=== PATIENT | male | born 1960 | race Caucasian/White ===

== ENCOUNTER → 2016-09-20 | Outpatient (CLI) | payer BC, OTHER ==
[2016-09-20 12:27] LABS: INR 0.9
[2016-09-20 12:59] LABS: ALBUMIN/GLOBULIN RATIO 1.25 (1.00-1.93); ALKALINE PHOSPHATASE 99 U/L (45-117); ALT/SGPT 66 U/L (12-78); AST/SGOT 26 U/L (15-37); BILIRUBIN,DIRECT 0.2 MG/DL (0.0-0.2); BILIRUBIN,TOTAL 0.4 MG/DL (0.2-1.0); PERCENT SATURATION 22.6 % (19.7-37.4); TOTAL IRON BINDING CAPACITY 416 UG/DL (250-450); TOTAL PROTEIN 7.2 GM/DL (6.4-8.2)
== END ==
LOC: M LAB 11:15
PROVIDERS: ATTEND Internal Medicine Gastroenterology
DX: R93.3 Abnormal findings on diagnostic imaging of other parts of digestive tract (principal)

== ENCOUNTER → 2016-10-02 | Outpatient (CLI) | payer BC, OTHER ==
[~2016-10-02] VITALS: Ht 172.7 cm; Wt 112.0 kg
[~2016-10-02] MED LIST: ALBUTEROL SULFATE 2.5 MG/0.5 ML INH NEB SOLN As Ordered ONE; ASPI81TA7 PO; FLUTISP; FURO20TA2 PO; IPRA2IN INH; LIDOCAINE 2% INJ 100 MG/5 ML SDV (FOR ANES.) As Ordered ONE; NS 1,000 ML IV SCH; OMEP40CA2 PO; PROA1AER INH; PROPOFOL 200 MG/20 ML VIAL As Ordered ONE; SPIR50TA2 PO; [UNRECOGNIZED DRUG - OTHER] INH
--- NOTE | 2016-10-02 10:20 | ROOR ---
Patient Name: Roderick Michael Procedure Date: 10/02/2016 10:08 AM Date of : 1960 Age: 56 Room: [facility] Gender: Male Note Status: Finalized Procedure: Upper GI endoscopy Indications: Heartburn Providers: Shaun DENNIS MD Referring MD: Renée Das MD Requesting Provider: Medicines: Monitored Anesthesia Care Complications: No immediate complications. Procedure: Pre-Anesthesia Assessment: - The heart rate, respiratory rate, oxygen saturations, blood pressure, adequacy of pulmonary ventilation, and response to care were monitored throughout the procedure. The Endoscope was introduced through the mouth, and advanced to the second part of duodenum. The upper GI endoscopy was accomplished without difficulty. The patient tolerated the procedure well. Findings: The esophagus was normal. The stomach was normal. The examined duodenum was normal. Impression: - Normal esophagus. - Normal stomach. - Normal examined duodenum. - No specimens collected. Recommendation: - Observe patient's clinical course. - Follow an antireflux regimen. - Continue present medications. Shaun Dennis MD Shaun DENNIS MD 10/02/2016 10:19:32 AM This report has been signed electronically. Number of Addenda: 0 Note Initiated On: 10/02/2016 10:08 AM Estimated Blood Loss: Estimated blood loss: none.
[2016-10-02 10:58] VITALS: BP 134/96
== END ==
LOC: M OPP 08:20
PROVIDERS: ATTEND Internal Medicine Gastroenterology
DX: R12 Heartburn (principal); K21.9 Gastro-esophageal reflux disease without esophagitis; J44.9 Chronic obstructive pulmonary disease, unspecified; G47.30 Sleep apnea, unspecified

== ENCOUNTER → 2017-05-15 | Outpatient (CLI) | payer BC, OTHER ==
[~2017-05-15] MED LIST changes: -ALBUTEROL SULFATE 2.5 MG/0.5 ML INH NEB SOLN As Ordered ONE; +ASPI1TAB15 PO; -ASPI81TA7 PO; -LIDOCAINE 2% INJ 100 MG/5 ML SDV (FOR ANES.) As Ordered ONE; -NS 1,000 ML IV SCH; -PROA1AER INH; +PROAAER10 INH; -PROPOFOL 200 MG/20 ML VIAL As Ordered ONE
--- NOTE | 2017-05-17 15:34 | SLEEPHOME ---
DATE OF PROCEDURE: 05/15/2017 REFERRING PROVIDER: Dr. Das INTERPRETATION: Diagnostic home sleep testing was performed due to concern for the obstructive sleep apnea syndrome. For testing, a NOX-T3 respiratory monitoring device was used. Continuous record was made of pulse, oxygen saturation, air flow, chest and abdominal strain, and body position. 9 hours and 59 minutes of data were reviewed. There were 3 hours and 31 minutes marked as time in bed. During the interval marked time in bed, there were 181 respiratory events identified of 10 seconds in duration or greater for a respiratory event index of 51.3. The events were primarily obstructive. Baseline pulse rate was 104. Pulse rate ranged 52 to 124. Baseline saturation was 79%. Oxygen desaturations were seen to 61% surrounding respiratory events. Respiratory events were seen in both the supine and nonsupine position. IMPRESSION: Abnormal home sleep testing with repetitive respiratory events and oxygen desaturations to 61% with a respiratory event index of 51.3 is consistent with severe obstructive sleep apnea syndrome. In light of the significant oxygen desaturations, referral for formal sleep testing and in laboratory pressure titration is recommended. Home testing devices do not accommodate for oxygen saturation and would be contraindicated in this instance.
== END ==
LOC: M SLEEP HO 08:54
PROVIDERS: ATTEND Family Medicine
DX: J44.9 Chronic obstructive pulmonary disease, unspecified (principal)

== ENCOUNTER 2017-10-25 11:08 | Inpatient (IN) | payer BC, OTHER ==
[2017-10-25 12:09] LABS: VENOUS BASE EXCESS 5.2 (-2.0-2.0); VENOUS HCO3 35.7 MEQ/L (23.0-27.0); VENOUS O2 SATURATION 86.5 % (60.0-80.0); VENOUS PARTIAL PRESSURE CO2 76.6 mmHg (38.0-50.0); VENOUS PARTIAL PRESSURE O2 49.9 mmHg (30.0-50.0); VENOUS PH 7.286 UNITS (7.330-7.430); VENOUS STANDARD HCO3 28.8 MEQ/L
[2017-10-25 12:15] LABS: BASO # 0.1 10^3/uL (0.0-0.2); BASO % 0.8 % (0.0-1.0); EOS # 0.2 10^3/uL (0.0-0.50); HEMATOCRIT 54.3 % (42.0-52.0); HEMOGLOBIN 17.4 g/dl (14.0-18.0); IMMATURE GRANULOCYTE % 0.3 % (0-3.0); LYMPH # 1.6 10^3/uL (1.5-4.5); LYMPH % 18.2 % (24.0-44.0); MEAN CORPUSCULAR HEMOGLOBIN 30.2 pg (27.0-33.0); MEAN CORPUSCULAR VOLUME 94.3 fl (80.0-96.0); MONO # 1.1 10^3/uL (0.0-0.8); MONO % 12.5 % (0.0-5.0); NEUTROPHILS # 5.7 10^3/uL (1.8-7.7); NEUTROPHILS % 66.2 % (36.0-66.0); PLATELET COUNT, AUTOMATED 220 10^3/uL (150-450); RED BLOOD COUNT 5.76 10^6/uL (4.30-6.10); RED CELL DISTRIBUTION WIDTH 14.7 % (11.5-14.5); WHITE BLOOD COUNT 8.6 10^3/uL (4.0-10.0)
[2017-10-25 12:16] LABS: SUSPECT SAMPLE POS FLAG
[2017-10-25 12:26] LABS: INR 0.92; PROTHROMBIN TIME 12.4 SECONDS (12.4-14.5)
[2017-10-25 12:39] LABS: ANION GAP 6 MEQ/L (8-16); BLOOD UREA NITROGEN 19 MG/DL (7-18); CALCIUM LEVEL 8.9 MG/DL (8.5-10.1); CARBON DIOXIDE LEVEL 34 MEQ/L (21-32); CHLORIDE LEVEL 102 MEQ/L (98-107); CK-MB VALUE MASS 1.9 NG/ML (0.0-3.6); CPK CREATINE PHOSPHOKINASE 98 U/L (39-308); CREATININE FOR GFR 0.94 MG/DL (0.70-1.30); GLOMERULAR FILTRATION RATE > 60.0 (>56); GLUCOSE, FASTING 84 MG/DL (70-100); MB/CK RELATIVE INDEX 1.93 (< OR =4); SODIUM LEVEL 142 MEQ/L (136-145); TROPONIN I < 0.02 NG/ML (< 0.10)
[2017-10-25 12:39] LABS: LACTIC ACID SEPSIS PROTOCOL 2.8 MMOL/L (0.4-2.0)
[2017-10-25 12:43] LABS: ALBUMIN 3.6 GM/DL (3.2-5.2); ALBUMIN/GLOBULIN RATIO 1.13 (1.00-1.93); ALKALINE PHOSPHATASE 93 U/L (45-117); ALT/SGPT 60 U/L (12-78); AST/SGOT 36 U/L (7-37); BILIRUBIN,DIRECT 0.1 MG/DL (0.0-0.2); BILIRUBIN,TOTAL 0.4 MG/DL (0.2-1.0); NT-PRO BNP 20 PG/ML (<125); TOTAL PROTEIN 6.8 GM/DL (6.4-8.2)
[2017-10-25] MEDS ORDERED: ISOVUE-370 76% 100ML VIAL (Q9967) As Ordered ×2 (14:15)
[2017-10-25] MEDS: methylPREDNISolone INJ 125 MG/2 ML VIAL (J2930) IV ×4 (15:06→22:26)
[2017-10-25] MEDS: IPRATROPIUM 0.5MG/ALBUTEROL 2.5MG INH SOL UD 3ML (DUONEB)(J7620) NEB ×4 (15:22→19:30)
[2017-10-25 18:13] LABS: ABG BASE EXCESS 2.9 (-2.0-2.0); ABG HCO3 29.6 MEQ/L (22.0-26.0); ABG O2 SATURATION 90.8 % (95.0-99.0); ABG PARTIAL PRESSURE CO2 52.1 mmHg (35.0-45.0); ABG PARTIAL PRESSURE O2 59.5 mmHg (75.0-100.0); ABG STANDARD HCO3 26.8 MEQ/L (22.0-26.0); ABG TOTAL CO2 31.2 MEQ/L (22.0-29.0); ABG pH (ARTERIAL) 7.373 UNITS (7.350-7.450)
[2017-10-25] MEDS: AZITHROMYCIN INJ 500 MG, VIAL MATE ADAPTER 1 EACH in D5W 250 ML IV ×2 (18:28)
[2017-10-25] MEDS: CEFTRIAXONE SOD 1 GM in APPROPRIATE DILUENT 1 EA IV (19:49)
[2017-10-25] MEDS: GABAPENTIN 300 MG CAP PO ×2 (21:14)
[2017-10-26] MEDS: IPRATROPIUM 0.5MG/ALBUTEROL 2.5MG INH SOL UD 3ML (DUONEB)(J7620) NEB ×14 (00:13→23:57)
[2017-10-26 06:35] LABS: HEMATOCRIT 56.5 % (42.0-52.0); HEMOGLOBIN 17.8 g/dl (14.0-18.0); MEAN CORPUSCULAR HEMOGLOBIN 29.5 pg (27.0-33.0); MEAN CORPUSCULAR HGB CONC 31.5 g/dl (32.0-36.5); MEAN CORPUSCULAR VOLUME 93.5 fl (80.0-96.0); PLATELET COUNT, AUTOMATED 220 10^3/uL (150-450); RED BLOOD COUNT 6.04 10^6/uL (4.30-6.10); WHITE BLOOD COUNT 8.5 10^3/uL (4.0-10.0)
[2017-10-26] MEDS: NS 500 ML IV ×2 (06:39)
[2017-10-26] MEDS: methylPREDNISolone INJ 125 MG/2 ML VIAL (J2930) IV ×6 (06:40→23:36)
[2017-10-26] MEDS: ACETAMINOPHEN TAB 650MG DOSE (2X325MG) PO ×2 (06:40)
[2017-10-26 08:13] LABS: ALBUMIN 3.3 GM/DL (3.2-5.2); ALBUMIN/GLOBULIN RATIO 0.97 (1.00-1.93); ALKALINE PHOSPHATASE 91 U/L (45-117); ALT/SGPT 54 U/L (12-78); ANION GAP 5 MEQ/L (8-16); AST/SGOT 22 U/L (7-37); BILIRUBIN,TOTAL 0.2 MG/DL (0.2-1.0); BLOOD UREA NITROGEN 23 MG/DL (7-18); CALCIUM LEVEL 8.1 MG/DL (8.5-10.1); CARBON DIOXIDE LEVEL 35 MEQ/L (21-32); CHLORIDE LEVEL 105 MEQ/L (98-107); CREATININE FOR GFR 1.11 MG/DL (0.70-1.30); GLOMERULAR FILTRATION RATE > 60.0 (>56); GLUCOSE, FASTING 227 MG/DL (70-100); MAGNESIUM LEVEL 2.7 MG/DL (1.8-2.4); POTASSIUM SERUM 4.4 MEQ/L (3.5-5.1); SODIUM LEVEL 145 MEQ/L (136-145); TOTAL PROTEIN 6.7 GM/DL (6.4-8.2)
[2017-10-26] MEDS: FLUTICASONE PROP 0.05% NASAL SPRAY 16 GM (FLONASE) ×2 (08:37)
[2017-10-26] MEDS: hydroCHLOROthiazide 12.5 MG CAPSULE PO ×2 (08:37)
[2017-10-26] MEDS: GABAPENTIN 300 MG CAP PO ×4 (08:37→20:03)
[2017-10-26] MEDS: OMEPRAZOLE 20 MG CAP PO ×2 (08:37)
[2017-10-26] MEDS: ENOXAPARIN 40 MG/0.4 ML SYRINGE (J1650) SC ×2 (08:37)
[2017-10-26] MEDS: VALSARTAN 80 MG TAB (DIOVAN) PO ×2 (08:38)
[2017-10-26] MEDS: FUROSEMIDE 20 MG TAB PO ×2 (08:38)
[2017-10-26] MEDS: CEFTRIAXONE SOD 1 GM in APPROPRIATE DILUENT 1 EA IV ×2 (08:38→20:03)
[2017-10-26] MEDS: AZITHROMYCIN INJ 500 MG, VIAL MATE ADAPTER 1 EACH in D5W 250 ML IV ×2 (17:23)
[2017-10-27] MEDS: IPRATROPIUM 0.5MG/ALBUTEROL 2.5MG INH SOL UD 3ML (DUONEB)(J7620) NEB ×12 (03:10→23:21)
[2017-10-27 04:41] LABS: HEMATOCRIT 54.9 % (42.0-52.0); HEMOGLOBIN 16.8 g/dl (14.0-18.0); MEAN CORPUSCULAR HEMOGLOBIN 29.3 pg (27.0-33.0); MEAN CORPUSCULAR HGB CONC 30.6 g/dl (32.0-36.5); MEAN CORPUSCULAR VOLUME 95.6 fl (80.0-96.0); PLATELET COUNT, AUTOMATED 214 10^3/uL (150-450); RED BLOOD COUNT 5.74 10^6/uL (4.30-6.10); RED CELL DISTRIBUTION WIDTH 15.4 % (11.5-14.5); WHITE BLOOD COUNT 14.2 10^3/uL (4.0-10.0)
[2017-10-27 05:06] LABS: ALBUMIN 3.4 GM/DL (3.2-5.2); ALBUMIN/GLOBULIN RATIO 0.85 (1.00-1.93); ALKALINE PHOSPHATASE 82 U/L (45-117); ALT/SGPT 52 U/L (12-78); ANION GAP 4 MEQ/L (8-16); AST/SGOT 28 U/L (7-37); BILIRUBIN,TOTAL 0.3 MG/DL (0.2-1.0); BLOOD UREA NITROGEN 26 MG/DL (7-18); CALCIUM LEVEL 8.5 MG/DL (8.5-10.1); CARBON DIOXIDE LEVEL 34 MEQ/L (21-32); CHLORIDE LEVEL 105 MEQ/L (98-107); CREATININE FOR GFR 1.06 MG/DL (0.70-1.30); GLOMERULAR FILTRATION RATE > 60.0 (>56); GLUCOSE, FASTING 178 MG/DL (70-100); MAGNESIUM LEVEL 2.7 MG/DL (1.8-2.4); POTASSIUM SERUM 4.5 MEQ/L (3.5-5.1); SODIUM LEVEL 143 MEQ/L (136-145); TOTAL PROTEIN 7.4 GM/DL (6.4-8.2)
[2017-10-27] MEDS: ACETAMINOPHEN TAB 650MG DOSE (2X325MG) PO ×4 (05:54→19:59)
[2017-10-27] MEDS: methylPREDNISolone INJ 125 MG/2 ML VIAL (J2930) IV ×4 (06:13→14:36)
[2017-10-27] MEDS: BUDESONIDE 0.5 MG/2 ML INHALATION SUSPENSION INH ×4 (08:00→19:34)
[2017-10-27] MEDS: FORMOTEROL FUMARATE 20 MCG/2 ML INHALATION SOLUTION (PERFOROMIST) INH ×4 (08:00→19:34)
[2017-10-27] MEDS: CEFTRIAXONE SOD 1 GM in APPROPRIATE DILUENT 1 EA IV ×2 (08:04→19:59)
[2017-10-27] MEDS: hydroCHLOROthiazide 12.5 MG CAPSULE PO ×2 (08:05)
[2017-10-27] MEDS: GABAPENTIN 300 MG CAP PO ×4 (08:05→20:00)
[2017-10-27] MEDS: FUROSEMIDE 20 MG TAB PO ×2 (08:05)
[2017-10-27] MEDS: OMEPRAZOLE 20 MG CAP PO ×2 (08:05)
[2017-10-27] MEDS: VALSARTAN 80 MG TAB (DIOVAN) PO ×2 (08:06)
[2017-10-27] MEDS: FLUTICASONE PROP 0.05% NASAL SPRAY 16 GM (FLONASE) ×2 (08:06)
[2017-10-27] MEDS: ENOXAPARIN 40 MG/0.4 ML SYRINGE (J1650) SC ×2 (08:06)
[2017-10-27 08:42] LABS: C REACTIVE PROTEIN QUANTITATIV 0.47 MG/DL (0.00-0.30)
[2017-10-27] MEDS: SPIRONOLACTONE 50 MG TAB PO ×2 (09:01)
[2017-10-27 09:38] LABS: ERYTHROCYTE SEDIMENTATION RATE 2 mm/hr (0-20)
[2017-10-27] MEDS ORDERED: MAGIC MOUTHWASH SUSPENSION BTL SSP ×2 (12:30)
[2017-10-27] MEDS: AZITHROMYCIN INJ 500 MG, VIAL MATE ADAPTER 1 EACH in D5W 250 ML IV ×2 (17:56)
[2017-10-27] MEDS: ONDANSETRON 4MG/2ML VIAL (J2405) IV ×2 (18:48)
[2017-10-28] MEDS: methylPREDNISolone INJ 125 MG/2 ML VIAL (J2930) IV ×8 (00:26→23:11)
[2017-10-28] MEDS: ACETAMINOPHEN TAB 650MG DOSE (2X325MG) PO ×2 (03:34)
[2017-10-28] MEDS: ONDANSETRON 4MG/2ML VIAL (J2405) IV ×4 (03:37→09:31)
[2017-10-28] MEDS: IPRATROPIUM 0.5MG/ALBUTEROL 2.5MG INH SOL UD 3ML (DUONEB)(J7620) NEB ×12 (04:00→23:10)
[2017-10-28] MEDS ORDERED: diphenhydrAMINE INJ 50MG/ML VIAL (J1200) As Ordered ×2 (04:55)
[2017-10-28] MEDS: diphenhydrAMINE INJ 50MG/ML VIAL (J1200) IV ×4 (05:05→23:12)
[2017-10-28 05:33] LABS: HEMATOCRIT 55.3 % (42.0-52.0); HEMOGLOBIN 17.2 g/dl (14.0-18.0); MEAN CORPUSCULAR HEMOGLOBIN 29.8 pg (27.0-33.0); MEAN CORPUSCULAR HGB CONC 31.1 g/dl (32.0-36.5); MEAN CORPUSCULAR VOLUME 95.7 fl (80.0-96.0); PLATELET COUNT, AUTOMATED 186 10^3/uL (150-450); RED BLOOD COUNT 5.78 10^6/uL (4.30-6.10); RED CELL DISTRIBUTION WIDTH 15.1 % (11.5-14.5); WHITE BLOOD COUNT 13.2 10^3/uL (4.0-10.0)
[2017-10-28 05:44] LABS: ALBUMIN 3.6 GM/DL (3.2-5.2); ALBUMIN/GLOBULIN RATIO 1.03 (1.00-1.93); ALKALINE PHOSPHATASE 78 U/L (45-117); ALT/SGPT 65 U/L (12-78); ANION GAP 7 MEQ/L (8-16); AST/SGOT 31 U/L (7-37); BILIRUBIN,TOTAL 0.3 MG/DL (0.2-1.0); BLOOD UREA NITROGEN 28 MG/DL (7-18); CALCIUM LEVEL 8.4 MG/DL (8.5-10.1); CARBON DIOXIDE LEVEL 36 MEQ/L (21-32); CHLORIDE LEVEL 101 MEQ/L (98-107); CREATININE FOR GFR 0.96 MG/DL (0.70-1.30); GLOMERULAR FILTRATION RATE > 60.0 (>56); GLUCOSE, FASTING 137 MG/DL (70-100); SODIUM LEVEL 144 MEQ/L (136-145); TOTAL PROTEIN 7.1 GM/DL (6.4-8.2)
[2017-10-28] MEDS ORDERED: methylPREDNISolone INJ 125 MG/2 ML VIAL (J2930) As Ordered ×2 (06:15)
[2017-10-28] MEDS: BUDESONIDE 0.5 MG/2 ML INHALATION SUSPENSION INH ×4 (07:51→19:45)
[2017-10-28] MEDS: FORMOTEROL FUMARATE 20 MCG/2 ML INHALATION SOLUTION (PERFOROMIST) INH ×4 (07:51→19:45)
[2017-10-28] MEDS: SPIRONOLACTONE 50 MG TAB PO ×2 (08:46)
[2017-10-28] MEDS: CEFTRIAXONE SOD 1 GM in APPROPRIATE DILUENT 1 EA IV ×2 (08:46→20:09)
[2017-10-28] MEDS: ENOXAPARIN 40 MG/0.4 ML SYRINGE (J1650) SC ×2 (08:46)
[2017-10-28] MEDS: hydroCHLOROthiazide 12.5 MG CAPSULE PO ×2 (08:47)
[2017-10-28] MEDS: FUROSEMIDE 20 MG TAB PO ×2 (08:47)
[2017-10-28] MEDS: GABAPENTIN 300 MG CAP PO ×4 (08:47→20:09)
[2017-10-28] MEDS: VALSARTAN 80 MG TAB (DIOVAN) PO ×2 (08:47)
[2017-10-28] MEDS: OMEPRAZOLE 20 MG CAP PO ×2 (08:47)
[2017-10-28] MEDS: FLUTICASONE PROP 0.05% NASAL SPRAY 16 GM (FLONASE) ×2 (08:48)
[2017-10-28] MEDS: EXCEDRIN MIGRAINE TABLET PO ×4 (09:31→20:35)
[2017-10-28] MEDS: DOCUSATE SODIUM 100 MG CAP PO ×4 (12:51→20:09)
[2017-10-28] MEDS: MIRALAX *UNIT DOSE* 17GM PACKET PO ×2 (12:51)
[2017-10-28] MEDS: FUROSEMIDE 40 MG/4 ML VIAL (J1940) IV ×2 (15:35)
[2017-10-28] MEDS: AZITHROMYCIN INJ 500 MG, VIAL MATE ADAPTER 1 EACH in D5W 250 ML IV ×2 (17:49)
[2017-10-29] MEDS: IPRATROPIUM 0.5MG/ALBUTEROL 2.5MG INH SOL UD 3ML (DUONEB)(J7620) NEB ×14 (02:12→23:58)
[2017-10-29] MEDS: ONDANSETRON 4MG/2ML VIAL (J2405) IV ×2 (02:22)
[2017-10-29 04:35] LABS: HEMATOCRIT 57.2 % (42.0-52.0); HEMOGLOBIN 17.6 g/dl (14.0-18.0); MEAN CORPUSCULAR HEMOGLOBIN 29.6 pg (27.0-33.0); MEAN CORPUSCULAR HGB CONC 30.8 g/dl (32.0-36.5); MEAN CORPUSCULAR VOLUME 96.1 fl (80.0-96.0); PLATELET COUNT, AUTOMATED 180 10^3/uL (150-450); RED BLOOD COUNT 5.95 10^6/uL (4.30-6.10); RED CELL DISTRIBUTION WIDTH 14.8 % (11.5-14.5); WHITE BLOOD COUNT 11.5 10^3/uL (4.0-10.0)
[2017-10-29 04:49] LABS: ALBUMIN 3.3 GM/DL (3.2-5.2); ALBUMIN/GLOBULIN RATIO 0.87 (1.00-1.93); ALKALINE PHOSPHATASE 75 U/L (45-117); ALT/SGPT 99 U/L (12-78); ANION GAP 1 MEQ/L (8-16); AST/SGOT 47 U/L (7-37); BILIRUBIN,TOTAL 0.2 MG/DL (0.2-1.0); BLOOD UREA NITROGEN 36 MG/DL (7-18); CALCIUM LEVEL 8.1 MG/DL (8.5-10.1); CARBON DIOXIDE LEVEL 41 MEQ/L (21-32); CHLORIDE LEVEL 98 MEQ/L (98-107); GLOMERULAR FILTRATION RATE > 60.0 (>56); GLUCOSE, FASTING 138 MG/DL (70-100); POTASSIUM SERUM 4.9 MEQ/L (3.5-5.1); SODIUM LEVEL 140 MEQ/L (136-145); TOTAL PROTEIN 7.1 GM/DL (6.4-8.2)
[2017-10-29] MEDS: methylPREDNISolone INJ 125 MG/2 ML VIAL (J2930) IV ×2 (06:22)
[2017-10-29] MEDS: FORMOTEROL FUMARATE 20 MCG/2 ML INHALATION SOLUTION (PERFOROMIST) INH ×4 (07:40→19:45)
[2017-10-29] MEDS: BUDESONIDE 0.5 MG/2 ML INHALATION SUSPENSION INH ×4 (07:40→19:45)
[2017-10-29] MEDS: CEFTRIAXONE SOD 1 GM in APPROPRIATE DILUENT 1 EA IV (08:29)
[2017-10-29] MEDS: SPIRONOLACTONE 50 MG TAB PO ×2 (08:30)
[2017-10-29] MEDS: ENOXAPARIN 40 MG/0.4 ML SYRINGE (J1650) SC ×2 (08:30)
[2017-10-29] MEDS: GABAPENTIN 300 MG CAP PO ×4 (08:30→20:19)
[2017-10-29] MEDS: hydroCHLOROthiazide 12.5 MG CAPSULE PO ×2 (08:30)
[2017-10-29] MEDS: DOCUSATE SODIUM 100 MG CAP PO ×4 (08:30→20:19)
[2017-10-29] MEDS: OMEPRAZOLE 20 MG CAP PO ×2 (08:30)
[2017-10-29] MEDS: FLUTICASONE PROP 0.05% NASAL SPRAY 16 GM (FLONASE) ×2 (08:31)
[2017-10-29] MEDS: VALSARTAN 80 MG TAB (DIOVAN) PO ×2 (08:39)
[2017-10-29] MEDS: NADOLOL 20MG TABLET PO ×2 (10:26)
[2017-10-29] MEDS: EXCEDRIN MIGRAINE TABLET PO ×2 (10:30)
[2017-10-29 14:10] LABS: LEGIONELLA ANTIGEN URINE Negative (Negative)
[2017-10-29] MEDS: SODIUM CHLORIDE 0.9% 1000 ML IV ×2 (16:15)
[2017-10-30] MEDS: IPRATROPIUM 0.5MG/ALBUTEROL 2.5MG INH SOL UD 3ML (DUONEB)(J7620) NEB ×10 (03:23→20:00)
[2017-10-30 04:59] LABS: HEMATOCRIT 54.4 % (42.0-52.0); HEMOGLOBIN 16.5 g/dl (14.0-18.0); MEAN CORPUSCULAR HEMOGLOBIN 29.6 pg (27.0-33.0); MEAN CORPUSCULAR HGB CONC 30.3 g/dl (32.0-36.5); MEAN CORPUSCULAR VOLUME 97.7 fl (80.0-96.0); PLATELET COUNT, AUTOMATED 202 10^3/uL (150-450); RED BLOOD COUNT 5.57 10^6/uL (4.30-6.10); RED CELL DISTRIBUTION WIDTH 14.6 % (11.5-14.5); WHITE BLOOD COUNT 11.8 10^3/uL (4.0-10.0)
[2017-10-30 05:23] LABS: ALBUMIN/GLOBULIN RATIO 0.88 (1.00-1.93); ALKALINE PHOSPHATASE 63 U/L (45-117); ALT/SGPT 85 U/L (12-78); ANION GAP 1 MEQ/L (8-16); AST/SGOT 27 U/L (7-37); BILIRUBIN,TOTAL 0.2 MG/DL (0.2-1.0); BLOOD UREA NITROGEN 41 MG/DL (7-18); CALCIUM LEVEL 7.8 MG/DL (8.5-10.1); CARBON DIOXIDE LEVEL 43 MEQ/L (21-32); CHLORIDE LEVEL 98 MEQ/L (98-107); GLOMERULAR FILTRATION RATE > 60.0 (>56); GLUCOSE, FASTING 96 MG/DL (70-100); MAGNESIUM LEVEL 3.1 MG/DL (1.8-2.4); POTASSIUM SERUM 4.8 MEQ/L (3.5-5.1); SODIUM LEVEL 142 MEQ/L (136-145); TOTAL PROTEIN 6.4 GM/DL (6.4-8.2)
[2017-10-30] MEDS: BUDESONIDE 0.5 MG/2 ML INHALATION SUSPENSION INH ×4 (07:41→20:31)
[2017-10-30] MEDS: FORMOTEROL FUMARATE 20 MCG/2 ML INHALATION SOLUTION (PERFOROMIST) INH ×4 (07:41→20:31)
[2017-10-30] MEDS: FLUTICASONE PROP 0.05% NASAL SPRAY 16 GM (FLONASE) ×2 (08:41)
[2017-10-30] MEDS: ENOXAPARIN 40 MG/0.4 ML SYRINGE (J1650) SC ×2 (08:43)
[2017-10-30] MEDS: OMEPRAZOLE 20 MG CAP PO ×2 (08:44)
[2017-10-30] MEDS: DOCUSATE SODIUM 100 MG CAP PO ×4 (08:44→20:50)
[2017-10-30] MEDS: VALSARTAN 80 MG TAB (DIOVAN) PO ×2 (08:45)
[2017-10-30] MEDS: GABAPENTIN 300 MG CAP PO ×4 (08:47→20:50)
[2017-10-30] MEDS: SPIRONOLACTONE 50 MG TAB PO ×2 (08:50)
[2017-10-30] MEDS: NADOLOL 20MG TABLET PO ×2 (08:50)
[2017-10-30] MEDS: hydroCHLOROthiazide 12.5 MG CAPSULE PO ×2 (08:52)
[2017-10-30] MEDS: FUROSEMIDE 40 MG/4 ML VIAL (J1940) IV ×2 (09:14)
[2017-10-31] MEDS: IPRATROPIUM 0.5MG/ALBUTEROL 2.5MG INH SOL UD 3ML (DUONEB)(J7620) NEB ×12 (00:31→20:00)
[2017-10-31 05:05] LABS: HEMATOCRIT 53.9 % (42.0-52.0); HEMOGLOBIN 16.9 g/dl (14.0-18.0); MEAN CORPUSCULAR HEMOGLOBIN 29.5 pg (27.0-33.0); MEAN CORPUSCULAR HGB CONC 31.4 g/dl (32.0-36.5); MEAN CORPUSCULAR VOLUME 94.1 fl (80.0-96.0); PLATELET COUNT, AUTOMATED 202 10^3/uL (150-450); RED BLOOD COUNT 5.73 10^6/uL (4.30-6.10); RED CELL DISTRIBUTION WIDTH 14.4 % (11.5-14.5); WHITE BLOOD COUNT 10.2 10^3/uL (4.0-10.0)
[2017-10-31 05:36] LABS: ALBUMIN 2.8 GM/DL (3.2-5.2); ALBUMIN/GLOBULIN RATIO 0.85 (1.00-1.93); ALKALINE PHOSPHATASE 61 U/L (45-117); ALT/SGPT 65 U/L (12-78); ANION GAP 2 MEQ/L (8-16); AST/SGOT 28 U/L (7-37); BILIRUBIN,TOTAL 0.3 MG/DL (0.2-1.0); BLOOD UREA NITROGEN 41 MG/DL (7-18); CARBON DIOXIDE LEVEL 41 MEQ/L (21-32); CHLORIDE LEVEL 97 MEQ/L (98-107); CREATININE FOR GFR 0.97 MG/DL (0.70-1.30); GLOMERULAR FILTRATION RATE > 60.0 (>56); GLUCOSE, FASTING 117 MG/DL (70-100); MAGNESIUM LEVEL 2.9 MG/DL (1.8-2.4); POTASSIUM SERUM 4.6 MEQ/L (3.5-5.1); SODIUM LEVEL 140 MEQ/L (136-145); TOTAL PROTEIN 6.1 GM/DL (6.4-8.2)
[2017-10-31] MEDS: ONDANSETRON 4MG/2ML VIAL (J2405) IV ×4 (06:04→18:44)
[2017-10-31] MEDS: BUDESONIDE 0.5 MG/2 ML INHALATION SUSPENSION INH ×4 (07:38→20:22)
[2017-10-31] MEDS: FORMOTEROL FUMARATE 20 MCG/2 ML INHALATION SOLUTION (PERFOROMIST) INH ×4 (07:38→20:22)
[2017-10-31] MEDS: OMEPRAZOLE 20 MG CAP PO ×2 (08:09)
[2017-10-31] MEDS: GABAPENTIN 300 MG CAP PO ×4 (08:09→21:28)
[2017-10-31] MEDS: DOCUSATE SODIUM 100 MG CAP PO ×4 (08:09→21:25)
[2017-10-31] MEDS: SPIRONOLACTONE 50 MG TAB PO ×2 (08:11)
[2017-10-31] MEDS: NADOLOL 20MG TABLET PO ×2 (08:12)
[2017-10-31] MEDS: hydroCHLOROthiazide 12.5 MG CAPSULE PO ×2 (08:12)
[2017-10-31] MEDS: VALSARTAN 80 MG TAB (DIOVAN) PO ×2 (08:12)
[2017-10-31] MEDS: FLUTICASONE PROP 0.05% NASAL SPRAY 16 GM (FLONASE) ×2 (08:13)
[2017-10-31] MEDS: ENOXAPARIN 40 MG/0.4 ML SYRINGE (J1650) SC ×2 (09:00)
[2017-10-31 10:16] LABS: INR 0.88; PARTIAL THROMBOPLASTIN TIME 22.6 SECONDS (26.8-37.9)
[2017-10-31] MEDS: FUROSEMIDE 100 MG/10 ML VIAL (J1940) IV ×4 (12:13→17:00)
[2017-10-31] MEDS: ACETAMINOPHEN TAB 650MG DOSE (2X325MG) PO ×2 (21:28)
[2017-10-31] MEDS: LIDOCAINE 2% 5ML JELLY UROJET TOP ×2 (23:28)
[2017-10-31] MEDS: ASPIRIN 81 MG ENTERIC TAB PO ×2 (23:29)
[2017-11-01] MEDS: IPRATROPIUM 0.5MG/ALBUTEROL 2.5MG INH SOL UD 3ML (DUONEB)(J7620) NEB ×14 (04:02→23:59)
[2017-11-01 04:58] LABS: HEMATOCRIT 56.1 % (42.0-52.0); HEMOGLOBIN 17.4 g/dl (14.0-18.0); MEAN CORPUSCULAR HEMOGLOBIN 30.1 pg (27.0-33.0); MEAN CORPUSCULAR VOLUME 96.9 fl (80.0-96.0); PLATELET COUNT, AUTOMATED 196 10^3/uL (150-450); RED BLOOD COUNT 5.79 10^6/uL (4.30-6.10); RED CELL DISTRIBUTION WIDTH 14.6 % (11.5-14.5); WHITE BLOOD COUNT 12.7 10^3/uL (4.0-10.0)
[2017-11-01 05:20] LABS: ALBUMIN 3.2 GM/DL (3.2-5.2); ALBUMIN/GLOBULIN RATIO 0.91 (1.00-1.93); ALKALINE PHOSPHATASE 70 U/L (45-117); ALT/SGPT 71 U/L (12-78); AST/SGOT 26 U/L (7-37); BILIRUBIN,TOTAL 0.4 MG/DL (0.2-1.0); BLOOD UREA NITROGEN 37 MG/DL (7-18); CALCIUM LEVEL 8.3 MG/DL (8.5-10.1); CHLORIDE LEVEL 96 MEQ/L (98-107); CREATININE FOR GFR 1.08 MG/DL (0.70-1.30); GLOMERULAR FILTRATION RATE > 60.0 (>56); GLUCOSE, FASTING 116 MG/DL (70-100); POTASSIUM SERUM 4.6 MEQ/L (3.5-5.1); SODIUM LEVEL 142 MEQ/L (136-145); TOTAL PROTEIN 6.7 GM/DL (6.4-8.2)
[2017-11-01 05:30] LABS: CARBON DIOXIDE LEVEL 51 MEQ/L (21-32)
[2017-11-01] MEDS: FORMOTEROL FUMARATE 20 MCG/2 ML INHALATION SOLUTION (PERFOROMIST) INH ×4 (07:43→19:07)
[2017-11-01] MEDS: BUDESONIDE 0.5 MG/2 ML INHALATION SUSPENSION INH ×4 (07:44→19:07)
[2017-11-01] MEDS: VALSARTAN 80 MG TAB (DIOVAN) PO ×2 (08:46)
[2017-11-01] MEDS: OMEPRAZOLE 20 MG CAP PO ×2 (08:46)
[2017-11-01] MEDS: SPIRONOLACTONE 50 MG TAB PO ×2 (08:47)
[2017-11-01] MEDS: GABAPENTIN 300 MG CAP PO ×4 (08:47→20:12)
[2017-11-01] MEDS: NADOLOL 20MG TABLET PO ×2 (08:47)
[2017-11-01] MEDS: hydroCHLOROthiazide 12.5 MG CAPSULE PO ×2 (08:47)
[2017-11-01] MEDS: DOCUSATE SODIUM 100 MG CAP PO ×4 (08:48→21:00)
[2017-11-01] MEDS: FLUTICASONE PROP 0.05% NASAL SPRAY 16 GM (FLONASE) ×2 (09:00)
[2017-11-01] MEDS: FUROSEMIDE 40 MG/4 ML VIAL (J1940) IV ×2 (11:20)
[2017-11-01] MEDS ORDERED: PILL CUTTER/CRUSHER XX ×2 (18:45)
[2017-11-01] MEDS ORDERED: LIDOCAINE 2% JELLY 30 ML TOP ×2 (19:15)
[2017-11-01] MEDS: ACETAMINOPHEN TAB 650MG DOSE (2X325MG) PO ×2 (20:13)
[2017-11-01] MEDS: EMLA CREAM 5GM (LIDOCAINE/PRILOCAINE) TOP ×2 (20:44)
[2017-11-02] MEDS: IPRATROPIUM 0.5MG/ALBUTEROL 2.5MG INH SOL UD 3ML (DUONEB)(J7620) NEB ×12 (03:12→23:50)
[2017-11-02] MEDS: ONDANSETRON 4MG/2ML VIAL (J2405) IV ×2 (03:59)
[2017-11-02 04:35] LABS: HEMATOCRIT 50.8 % (42.0-52.0); HEMOGLOBIN 15.9 g/dl (14.0-18.0); MEAN CORPUSCULAR HEMOGLOBIN 30.1 pg (27.0-33.0); MEAN CORPUSCULAR HGB CONC 31.3 g/dl (32.0-36.5); PLATELET COUNT, AUTOMATED 180 10^3/uL (150-450); RED BLOOD COUNT 5.29 10^6/uL (4.30-6.10); RED CELL DISTRIBUTION WIDTH 14.4 % (11.5-14.5); WHITE BLOOD COUNT 12.2 10^3/uL (4.0-10.0)
[2017-11-02 04:49] LABS: ANION GAP 3 MEQ/L (8-16); BLOOD UREA NITROGEN 34 MG/DL (7-18); CALCIUM LEVEL 8.7 MG/DL (8.5-10.1); CARBON DIOXIDE LEVEL 44 MEQ/L (21-32); CHLORIDE LEVEL 94 MEQ/L (98-107); CREATININE FOR GFR 0.96 MG/DL (0.70-1.30); GLOMERULAR FILTRATION RATE > 60.0 (>56); GLUCOSE, FASTING 102 MG/DL (70-100); MAGNESIUM LEVEL 2.7 MG/DL (1.8-2.4); POTASSIUM SERUM 4.3 MEQ/L (3.5-5.1); SODIUM LEVEL 141 MEQ/L (136-145)
[2017-11-02] MEDS: BUDESONIDE 0.5 MG/2 ML INHALATION SUSPENSION INH ×4 (06:04→20:40)
[2017-11-02] MEDS: FORMOTEROL FUMARATE 20 MCG/2 ML INHALATION SOLUTION (PERFOROMIST) INH ×4 (06:05→20:40)
[2017-11-02] MEDS: OMEPRAZOLE 20 MG CAP PO ×2 (08:14)
[2017-11-02] MEDS: FUROSEMIDE 40 MG/4 ML VIAL (J1940) IV ×4 (08:14→21:28)
[2017-11-02] MEDS: GABAPENTIN 300 MG CAP PO ×4 (08:15→21:27)
[2017-11-02] MEDS: NADOLOL 20MG TABLET PO ×2 (08:15)
[2017-11-02] MEDS: SPIRONOLACTONE 50 MG TAB PO ×2 (08:15)
[2017-11-02] MEDS: DOCUSATE SODIUM 100 MG CAP PO ×4 (08:15→21:27)
[2017-11-02] MEDS: FLUTICASONE PROP 0.05% NASAL SPRAY 16 GM (FLONASE) ×2 (08:15)
[2017-11-03] MEDS: IPRATROPIUM 0.5MG/ALBUTEROL 2.5MG INH SOL UD 3ML (DUONEB)(J7620) NEB ×12 (03:03→23:08)
[2017-11-03 07:02] LABS: HEMATOCRIT 51.2 % (42.0-52.0); HEMOGLOBIN 16.2 g/dl (14.0-18.0); MEAN CORPUSCULAR HEMOGLOBIN 29.6 pg (27.0-33.0); MEAN CORPUSCULAR HGB CONC 31.6 g/dl (32.0-36.5); MEAN CORPUSCULAR VOLUME 93.4 fl (80.0-96.0); PLATELET COUNT, AUTOMATED 189 10^3/uL (150-450); RED BLOOD COUNT 5.48 10^6/uL (4.30-6.10); RED CELL DISTRIBUTION WIDTH 14.4 % (11.5-14.5); WHITE BLOOD COUNT 11.6 10^3/uL (4.0-10.0)
[2017-11-03 07:27] LABS: ANION GAP 5 MEQ/L (8-16); BLOOD UREA NITROGEN 28 MG/DL (7-18); CALCIUM LEVEL 8.6 MG/DL (8.5-10.1); CARBON DIOXIDE LEVEL 39 MEQ/L (21-32); CHLORIDE LEVEL 94 MEQ/L (98-107); CREATININE FOR GFR 0.97 MG/DL (0.70-1.30); GLOMERULAR FILTRATION RATE > 60.0 (>56); GLUCOSE, FASTING 165 MG/DL (70-100); MAGNESIUM LEVEL 2.4 MG/DL (1.8-2.4); POTASSIUM SERUM 3.9 MEQ/L (3.5-5.1); SODIUM LEVEL 138 MEQ/L (136-145)
[2017-11-03] MEDS: BUDESONIDE 0.5 MG/2 ML INHALATION SUSPENSION INH ×4 (08:09→20:22)
[2017-11-03] MEDS: FORMOTEROL FUMARATE 20 MCG/2 ML INHALATION SOLUTION (PERFOROMIST) INH ×4 (08:09→20:22)
[2017-11-03] MEDS: OMEPRAZOLE 20 MG CAP PO ×2 (08:55)
[2017-11-03] MEDS: DOCUSATE SODIUM 100 MG CAP PO ×4 (08:55→21:00)
[2017-11-03] MEDS: GABAPENTIN 300 MG CAP PO ×4 (08:55→20:59)
[2017-11-03] MEDS: SPIRONOLACTONE 50 MG TAB PO ×2 (08:55)
[2017-11-03] MEDS: NADOLOL 20MG TABLET PO ×2 (08:56)
[2017-11-03] MEDS: FLUTICASONE PROP 0.05% NASAL SPRAY 16 GM (FLONASE) ×2 (08:56)
[2017-11-03] MEDS: FUROSEMIDE 40 MG/4 ML VIAL (J1940) IV ×4 (08:56→16:45)
[2017-11-04] MEDS: IPRATROPIUM 0.5MG/ALBUTEROL 2.5MG INH SOL UD 3ML (DUONEB)(J7620) NEB ×10 (03:26→20:00)
[2017-11-04 07:00] LABS: HEMATOCRIT 50.7 % (42.0-52.0); HEMOGLOBIN 16.1 g/dl (14.0-18.0); MEAN CORPUSCULAR HEMOGLOBIN 29.5 pg (27.0-33.0); MEAN CORPUSCULAR HGB CONC 31.8 g/dl (32.0-36.5); MEAN CORPUSCULAR VOLUME 92.9 fl (80.0-96.0); PLATELET COUNT, AUTOMATED 180 10^3/uL (150-450); RED BLOOD COUNT 5.46 10^6/uL (4.30-6.10); RED CELL DISTRIBUTION WIDTH 14.6 % (11.5-14.5); WHITE BLOOD COUNT 9.8 10^3/uL (4.0-10.0)
[2017-11-04 07:21] LABS: ANION GAP 5 MEQ/L (8-16); BLOOD UREA NITROGEN 30 MG/DL (7-18); CARBON DIOXIDE LEVEL 41 MEQ/L (21-32); CHLORIDE LEVEL 97 MEQ/L (98-107); CREATININE FOR GFR 0.85 MG/DL (0.70-1.30); GLOMERULAR FILTRATION RATE > 60.0 (>56); GLUCOSE, FASTING 126 MG/DL (70-100); MAGNESIUM LEVEL 2.6 MG/DL (1.8-2.4); POTASSIUM SERUM 3.8 MEQ/L (3.5-5.1); SODIUM LEVEL 143 MEQ/L (136-145)
[2017-11-04] MEDS: FORMOTEROL FUMARATE 20 MCG/2 ML INHALATION SOLUTION (PERFOROMIST) INH ×4 (07:54→20:31)
[2017-11-04] MEDS: BUDESONIDE 0.5 MG/2 ML INHALATION SUSPENSION INH ×4 (07:54→20:31)
[2017-11-04] MEDS: SPIRONOLACTONE 50 MG TAB PO ×2 (09:21)
[2017-11-04] MEDS: NADOLOL 20MG TABLET PO ×2 (09:21)
[2017-11-04] MEDS: OMEPRAZOLE 20 MG CAP PO ×2 (09:21)
[2017-11-04] MEDS: FUROSEMIDE 40 MG/4 ML VIAL (J1940) IV ×4 (09:21→16:50)
[2017-11-04] MEDS: DOCUSATE SODIUM 100 MG CAP PO ×4 (09:21→20:10)
[2017-11-04] MEDS: GABAPENTIN 300 MG CAP PO ×4 (09:21→20:10)
[2017-11-04] MEDS: FLUTICASONE PROP 0.05% NASAL SPRAY 16 GM (FLONASE) ×2 (09:22)
[2017-11-05] MEDS: IPRATROPIUM 0.5MG/ALBUTEROL 2.5MG INH SOL UD 3ML (DUONEB)(J7620) NEB ×12 (00:44→20:00)
[2017-11-05 05:58] LABS: HEMATOCRIT 50.8 % (42.0-52.0); HEMOGLOBIN 16.2 g/dl (14.0-18.0); MEAN CORPUSCULAR HEMOGLOBIN 29.6 pg (27.0-33.0); MEAN CORPUSCULAR HGB CONC 31.9 g/dl (32.0-36.5); MEAN CORPUSCULAR VOLUME 92.7 fl (80.0-96.0); PLATELET COUNT, AUTOMATED 183 10^3/uL (150-450); RED BLOOD COUNT 5.48 10^6/uL (4.30-6.10); RED CELL DISTRIBUTION WIDTH 14.2 % (11.5-14.5); WHITE BLOOD COUNT 9.6 10^3/uL (4.0-10.0)
[2017-11-05 06:15] LABS: ANION GAP 6 MEQ/L (8-16); BLOOD UREA NITROGEN 29 MG/DL (7-18); CALCIUM LEVEL 8.9 MG/DL (8.5-10.1); CARBON DIOXIDE LEVEL 39 MEQ/L (21-32); CHLORIDE LEVEL 96 MEQ/L (98-107); CREATININE FOR GFR 1.01 MG/DL (0.70-1.30); GLOMERULAR FILTRATION RATE > 60.0 (>56); GLUCOSE, FASTING 128 MG/DL (70-100); MAGNESIUM LEVEL 2.3 MG/DL (1.8-2.4); POTASSIUM SERUM 3.5 MEQ/L (3.5-5.1); SODIUM LEVEL 141 MEQ/L (136-145)
[2017-11-05] MEDS: BUDESONIDE 0.5 MG/2 ML INHALATION SUSPENSION INH ×4 (07:58→21:35)
[2017-11-05] MEDS: FORMOTEROL FUMARATE 20 MCG/2 ML INHALATION SOLUTION (PERFOROMIST) INH ×4 (07:58→21:35)
[2017-11-05] MEDS: ONDANSETRON 4MG/2ML VIAL (J2405) IV ×2 (09:05)
[2017-11-05] MEDS: DOCUSATE SODIUM 100 MG CAP PO ×4 (09:10→20:22)
[2017-11-05] MEDS: OMEPRAZOLE 20 MG CAP PO ×2 (09:10)
[2017-11-05] MEDS: GABAPENTIN 300 MG CAP PO ×4 (09:10→20:22)
[2017-11-05] MEDS: SPIRONOLACTONE 50 MG TAB PO ×2 (09:14)
[2017-11-05] MEDS: FUROSEMIDE 40 MG/4 ML VIAL (J1940) IV ×4 (09:15→17:14)
[2017-11-05] MEDS: NADOLOL 20MG TABLET PO ×2 (09:17)
[2017-11-05] MEDS: FLUTICASONE PROP 0.05% NASAL SPRAY 16 GM (FLONASE) ×2 (09:21)
[2017-11-06] MEDS: IPRATROPIUM 0.5MG/ALBUTEROL 2.5MG INH SOL UD 3ML (DUONEB)(J7620) NEB ×12 (02:18→21:26)
[2017-11-06 06:29] LABS: HEMATOCRIT 52.1 % (42.0-52.0); HEMOGLOBIN 16.6 g/dl (14.0-18.0); MEAN CORPUSCULAR HEMOGLOBIN 30.1 pg (27.0-33.0); MEAN CORPUSCULAR HGB CONC 31.9 g/dl (32.0-36.5); MEAN CORPUSCULAR VOLUME 94.4 fl (80.0-96.0); PLATELET COUNT, AUTOMATED 183 10^3/uL (150-450); RED BLOOD COUNT 5.52 10^6/uL (4.30-6.10); WHITE BLOOD COUNT 9.6 10^3/uL (4.0-10.0)
[2017-11-06 07:04] LABS: ANION GAP 5 MEQ/L (8-16); BLOOD UREA NITROGEN 26 MG/DL (7-18); CARBON DIOXIDE LEVEL 39 MEQ/L (21-32); CHLORIDE LEVEL 96 MEQ/L (98-107); CREATININE FOR GFR 1.02 MG/DL (0.70-1.30); GLOMERULAR FILTRATION RATE > 60.0 (>56); GLUCOSE, FASTING 103 MG/DL (70-100); MAGNESIUM LEVEL 2.6 MG/DL (1.8-2.4); POTASSIUM SERUM 3.7 MEQ/L (3.5-5.1); SODIUM LEVEL 140 MEQ/L (136-145)
[2017-11-06] MEDS: BUDESONIDE 0.5 MG/2 ML INHALATION SUSPENSION INH ×4 (07:19→21:24)
[2017-11-06] MEDS: FORMOTEROL FUMARATE 20 MCG/2 ML INHALATION SOLUTION (PERFOROMIST) INH ×4 (07:19→21:24)
[2017-11-06] MEDS: FUROSEMIDE 40 MG/4 ML VIAL (J1940) IV ×2 (09:06)
[2017-11-06] MEDS: GABAPENTIN 300 MG CAP PO ×4 (09:06→20:12)
[2017-11-06] MEDS: SPIRONOLACTONE 50 MG TAB PO ×2 (09:06)
[2017-11-06] MEDS: FLUTICASONE PROP 0.05% NASAL SPRAY 16 GM (FLONASE) ×2 (09:08)
[2017-11-06] MEDS: NADOLOL 20MG TABLET PO ×2 (09:09)
[2017-11-06] MEDS: DOCUSATE SODIUM 100 MG CAP PO ×4 (09:10→20:12)
[2017-11-06] MEDS: OMEPRAZOLE 20 MG CAP PO ×2 (09:12)
[2017-11-07] MEDS: IPRATROPIUM 0.5MG/ALBUTEROL 2.5MG INH SOL UD 3ML (DUONEB)(J7620) NEB ×6 (01:46→07:33)
[2017-11-07 06:01] LABS: HEMATOCRIT 50.2 % (42.0-52.0); HEMOGLOBIN 16.1 g/dl (14.0-18.0); MEAN CORPUSCULAR HEMOGLOBIN 30.1 pg (27.0-33.0); MEAN CORPUSCULAR HGB CONC 32.1 g/dl (32.0-36.5); MEAN CORPUSCULAR VOLUME 93.8 fl (80.0-96.0); PLATELET COUNT, AUTOMATED 170 10^3/uL (150-450); RED BLOOD COUNT 5.35 10^6/uL (4.30-6.10); WHITE BLOOD COUNT 9.9 10^3/uL (4.0-10.0)
[2017-11-07 06:24] LABS: ANION GAP 5 MEQ/L (8-16); BLOOD UREA NITROGEN 30 MG/DL (7-18); CALCIUM LEVEL 9.1 MG/DL (8.5-10.1); CARBON DIOXIDE LEVEL 38 MEQ/L (21-32); CHLORIDE LEVEL 97 MEQ/L (98-107); CREATININE FOR GFR 0.96 MG/DL (0.70-1.30); GLOMERULAR FILTRATION RATE > 60.0 (>56); GLUCOSE, FASTING 101 MG/DL (70-100); MAGNESIUM LEVEL 2.6 MG/DL (1.8-2.4); POTASSIUM SERUM 3.6 MEQ/L (3.5-5.1); SODIUM LEVEL 140 MEQ/L (136-145)
[2017-11-07] MEDS: FORMOTEROL FUMARATE 20 MCG/2 ML INHALATION SOLUTION (PERFOROMIST) INH ×2 (07:33)
[2017-11-07] MEDS: BUDESONIDE 0.5 MG/2 ML INHALATION SUSPENSION INH ×2 (07:33)
[2017-11-07] MEDS: GABAPENTIN 300 MG CAP PO ×2 (09:24)
[2017-11-07] MEDS: OMEPRAZOLE 20 MG CAP PO ×2 (09:24)
[2017-11-07] MEDS: SPIRONOLACTONE 50 MG TAB PO ×2 (09:24)
[2017-11-07] MEDS: DOCUSATE SODIUM 100 MG CAP PO ×2 (09:25)
[2017-11-07] MEDS: FUROSEMIDE 20 MG TAB PO ×2 (09:25)
[2017-11-07] MEDS: NADOLOL 20MG TABLET PO ×2 (09:35)
[2017-11-07] MEDS: FLUTICASONE PROP 0.05% NASAL SPRAY 16 GM (FLONASE) ×2 (09:36)
== END 2017-11-07 12:20 | disposition home or self-care (01) | DRG 194 ==
LOC: M MSPAV 11-02 15:35 → M ED 11:08 → M MSPAV 11-02 20:45 → M ED INP 16:26 → M ICU 18:15
DX: I11.0 Hypertensive heart disease with heart failure (principal); J96.02 Acute respiratory failure with hypercapnia; E87.2 Acidosis; J18.9 Pneumonia, unspecified organism; K76.0 Fatty (change of) liver, not elsewhere classified; J44.1 Chronic obstructive pulmonary disease with (acute) exacerbation; D75.1 Secondary polycythemia; J96.21 Acute and chronic respiratory failure with hypoxia; I50.33 Acute on chronic diastolic (congestive) heart failure; E66.01 Morbid (severe) obesity due to excess calories; G62.9 Polyneuropathy, unspecified; Z99.81 Dependence on supplemental oxygen; G47.33 Obstructive sleep apnea (adult) (pediatric); I87.2 Venous insufficiency (chronic) (peripheral); Z68.41 Body mass index [BMI] 40.0-44.9, adult; K21.9 Gastro-esophageal reflux disease without esophagitis; Z87.891 Personal history of nicotine dependence; Z91.19 Patient's noncompliance with other medical treatment and regimen; Z79.899 Other long term (current) drug therapy

== ENCOUNTER → 2017-11-21 | Outpatient (CLI) | payer BC, OTHER ==
[2017-11-21 13:34] LABS: HEMATOCRIT 49.5 % (42.0-52.0); HEMOGLOBIN 15.9 g/dl (14.0-18.0); MEAN CORPUSCULAR HEMOGLOBIN 29.6 pg (27.0-33.0); MEAN CORPUSCULAR HGB CONC 32.1 g/dl (32.0-36.5); PLATELET COUNT, AUTOMATED 286 10^3/uL (150-450); RED BLOOD COUNT 5.38 10^6/uL (4.30-6.10); RED CELL DISTRIBUTION WIDTH 14.1 % (11.5-14.5); WHITE BLOOD COUNT 8.1 10^3/uL (4.0-10.0)
== END ==
LOC: M SMT 11:34
DX: D75.1 Secondary polycythemia (principal); R06.00 Dyspnea, unspecified

== ENCOUNTER → 2017-11-26 | Outpatient (CLI) | payer BC, OTHER | LOC: M SLEEP 19:41 | DX: G47.33 Obstructive sleep apnea (adult) (pediatric) (principal); G47.61 Periodic limb movement disorder | CPT/HCPCS: 95811 ==

== ENCOUNTER → 2018-02-07 | Outpatient (CLI) | payer BC, OTHER | LOC: M SLEEP 19:16 | DX: G47.33 Obstructive sleep apnea (adult) (pediatric) (principal); R09.02 Hypoxemia | CPT/HCPCS: 95811 ==

== ENCOUNTER → 2018-07-17 | Outpatient (REF) | LOC: M SMT 12:55 | DX: Z00.00 Encounter for general adult medical examination without abnormal findings (principal) ==

== ENCOUNTER → 2018-07-18 | Outpatient (CLI) | payer BC, OTHER ==
[~2018-07-18] MED LIST changes: -ASPI1TAB15 PO; -FLUTISP; -FURO20TA2 PO; -IPRA2IN INH; +ISOVUE-370 76% 100ML VIAL (Q9967) As Ordered; -OMEP40CA2 PO; -PROAAER10 INH; -SPIR50TA2 PO; -[UNRECOGNIZED DRUG - OTHER] INH
== END ==
LOC: M RAD 09:03
DX: N32.9 Bladder disorder, unspecified (principal); N28.1 Cyst of kidney, acquired; K57.90 Diverticulosis of intestine, part unspecified, without perforation or abscess without bleeding
CPT/HCPCS: Q9967

== ENCOUNTER → 2018-08-05 | Outpatient (CLI) | payer BC, OTHER | LOC: M SMT 09:40 | DX: J43.8 Other emphysema (principal); Z87.891 Personal history of nicotine dependence; R97.20 Elevated prostate specific antigen [PSA] | CPT/HCPCS: 36415 ==

== ENCOUNTER 2018-09-04 06:01 | Day surgery (SDC) | payer BC, OTHER ==
[~2018-09-04] VITALS: Ht 172.7 cm; Wt 125.2 kg
[~2018-09-04 06:01] MED LIST changes: +ASPI1TAB15 PO; +BUDE0.5S6 INH; +CIPROFLOXACIN 500 MG TAB PO SCH; +FLUTISP; +FURO20TA2 PO; +GABA-843 PO; +GENTAMICIN 100 MG in APPROPRIATE DILUENT 1 EA IV ONE; +IPRA2IN INH; -ISOVUE-370 76% 100ML VIAL (Q9967) As Ordered; +LR 1,000 ML IV ONE; +LevoFLOXacin IV 500 MG in APPROPRIATE DILUENT 1 EA IV ONE; +OMEP40CA2 PO; +PERF20NE2 INH; +PROAAER10 INH; +SPIR50TA4 PO; +VALS160T PO; +[UNRECOGNIZED DRUG - OTHER] INH
[2018-09-04] MEDS ORDERED: LIDOCAINE 2% INJ 100 MG/5 ML SDV (FOR ANES.) As Ordered ONE (07:00)
[2018-09-04] MEDS ORDERED: PROPOFOL 200 MG/20 ML VIAL As Ordered ONE (07:00)
[2018-09-04] MEDS ORDERED: MIDAZOLAM INJ 2 MG/2 ML VIAL (J2250) As Ordered ONE (07:00)
[2018-09-04] MEDS ORDERED: ONDANSETRON 4MG/2ML VIAL (J2405) As Ordered ONE (07:00)
[2018-09-04] MEDS ORDERED: fentaNYL 100 MCG/2 ML INJECTION (J3010) As Ordered ONE (07:00)
[2018-09-04] MEDS ORDERED: dexameTHASONE 4 MG/ML 1ML VIAL (J1100) As Ordered ONE (07:00)
[2018-09-04] MEDS ORDERED: CONRAY-60 60% 50ML VIAL (Q9961) As Ordered ONE (07:14)
[2018-09-04] MEDS ORDERED: TAMSULOSIN 0.4 MG CAP PO SCH (09:00)
[2018-09-04] MEDS ORDERED: LIDOCAINE 2% 5ML JELLY UROJET As Ordered ONE ×2 (09:03→09:19)
--- NOTE | 2018-09-04 09:35 | REP ---
RETROGRADE PYELOGRAM: Nine views. HISTORY: Microscopic hematuria. Urgency. Elevated PSA. 9 seconds fluoroscopy time is reported. FINDINGS: A sequence of nine last image hold fluoroscopically obtained spot radiographs document ureteral cannulation and contrast injection bilaterally. No laterality markers are apparent. No abnormality is appreciated. Electronically Signed by Yovanny Epps MD 09/04/2018 06:34 P
[2018-09-04] MEDS ORDERED: fentaNYL 100 MCG/2 ML INJECTION (J3010) IV PRN (09:45)
[2018-09-04] MEDS ORDERED: LR 1,000 ML IV SCH (09:45)
[2018-09-04] MEDS ORDERED: PERCOCET 5MG/325MG TAB PO PRN (09:45)
[2018-09-04] MEDS ORDERED: ONDANSETRON 4MG/2ML VIAL (J2405) IV PRN (09:45)
--- NOTE | 2018-09-04 10:04 | ROOPDOC ---
[facility] Report Of Operation Report of Operation DATE OF PROCEDURE: 09/04/18 PREPROCEDURE DIAGNOSES: microscopic hematuria, urgency, nocturia,sleep apnea, chf, copd, r/o bladder lesion, screen prostate cancer, elevated psa. POSTPROCEDURE DIAGNOSES: enlarged prostate; neovascularization of the prostate susceptilble to bleeding. PROCEDURE: transrectal ultrasound and prostate biopsy (rectal approach) of right and left base, mid, apex, lateral and medial; cystoscopy and retrograde pyelogram. SURGEON: Jayce Guthrie MD [facility] [place] UPHOLSTERER: none ANESTHESIA: Spinal (8am) ESTIMATED BLOOD LOSS: Approximately <10 mL. COMPLICATIONS: none. REMARKS/Findings: as above enlarged prostate; bleeding from the prostate; calcifications within the mucosa of the anterior and posterior urethra; small clot and tissue seen the bladder associated with cystoscopy and enlarged prostate DESCRIPTION OF PROCEDURE: After informed consent, antibiotic (Levofloxacin/Gentamicin), pt was taken to the operating room suite where routine time out was completed with all stakeholders for care present. Pt was placed in lithotomy position after spinal anesthesia Transrectal probe (ERPLY) endfire was used for volume assessment (.523); please see US in radiology for details. Then the endfire probe was used to obtain biopsies from right base, lateral and medial; right mid, lateral and medial; right apex, lateral and medial Then the endfire probe was repositioned to obtain biopsies with (trucut needle biopsy gun, YUPIQ) from left base, lateral and medial; left mid, lateral and medial; left apex, lateral and medial Needle guide was and inspection of biopsies was used to ensure adequate and accurate location of tissue ([facility], documented the locations on the [employer] machine as Dr. Guthrie manipulated the probe and took biopsies). The testing tech put tissue in the formalin after obtain them off the needle. The patient had 2% lidocaine gel placed in the rectum. Then, the patient was prepped and drapped in the lithotomy position for 22f introduction of the rigid cystoscope into the urethra and bladder. Turcios inspection of the bladder reveals normal bladder wall and normal ureteral orifices. Other findings as above. 6f ureteral (open ended) catheter was used to complete right, then left retrograde pyelogram using part of 30ml syringe of conray content. The retrogrades were normal. The bladder was drained and the patient had 2% lidocaine gel placed in the urethra. The patient tolerated the procedure and taken the recovery room in excellent condition to recover from his spinal. Discussed findings and plan of care with mother of patient: cipro x 5 days; pyridium max 3 days and flomax x30 days with refills need kidney stone prevention diet/cysto and trusbx post operative care information for patient as requested by Dr. Guthrie. Jayce Guthrie MD [facility] Jayce Guthrie MD Sep 04, 2018 10:04
--- NOTE | 2018-09-04 10:25 | REP ---
Prostate sonography: History: Elevated PSA Sonographic findings: Trans rectal prostate sonography demonstrates unremarkable seminal vesicles. Prostate gland is heterogeneously enlarged with calcifications and cystic changes noted. Glandular dimensions are measured at 4.1 x 3.1 x 4.4 cm with a calculated glandular volume of 29.2 ml. Transrectal sonographic guidance provided to Dr. Guthrie who performed trans rectal ultrasound guided needle biopsy procedure . Electronically Signed by Yovanny Epps MD 09/04/2018 10:16 A
[2018-09-04] MEDS ORDERED: ACETAMINOPHEN 500 MG TAB PO PRN (11:30)
[2018-09-04] MEDS ORDERED: PHENAZOPYRIDINE 100 MG TAB PO PRN (11:30)
[2018-09-04 15:00] VITALS: BP 133/79
== END 2018-09-04 15:41 | disposition home or self-care (01) ==
LOC: M SDC 06:01
PROVIDERS: ATTEND Urology Pediatric Urology
DX: R31.29 Other microscopic hematuria (principal); R97.20 Elevated prostate specific antigen [PSA]; J44.9 Chronic obstructive pulmonary disease, unspecified; G47.30 Sleep apnea, unspecified
CPT/HCPCS: 36415; 52005; 55700; 74420; 76872; 76998; 86850; 86900; 86901; 87086; C1769; G0416; J1100; J1580; J1956; J2250; J2405; J3010; Q9961

== ENCOUNTER → 2018-09-18 | Outpatient (REF) | payer OTHER ==
[~2018-09-18] MED LIST changes: -CIPROFLOXACIN 500 MG TAB PO SCH; -GENTAMICIN 100 MG in APPROPRIATE DILUENT 1 EA IV ONE; -LR 1,000 ML IV ONE; -LevoFLOXacin IV 500 MG in APPROPRIATE DILUENT 1 EA IV ONE
== END ==
LOC: M LABSMT 17:12
PROVIDERS: ATTEND Urology Pediatric Urology
DX: E66.9 Obesity, unspecified (principal)

== ENCOUNTER → 2019-05-13 | Outpatient (CLI) | payer OTHER | LOC: M SMT 10:43 | PROVIDERS: ATTEND Nurse Practitioner Family | DX: R97.20 Elevated prostate specific antigen [PSA] (principal) ==